=== PATIENT | female | born 1990 | race Caucasian/White ===

== ENCOUNTER 2018-07-24 05:53 | Day surgery (SDC) | payer OTHER ==
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
[~2018-07-24 05:53] MED LIST: ANCEF/STERILE WATER 2 GM/20 ML 2 GM/20 ML SYRINGE IV NR
[2018-07-24] MEDS ORDERED: MARCAINE 0.5% INFILTRATI ONE ×2 (06:39→09:47)
[2018-07-24] MEDS: LACTATED RINGERS 1,000 ML IV SCH ×2 (06:45→07:31)
[2018-07-24] MEDS ORDERED: NACL BACTERIOSTATIC INFILTRATI ONE (06:46)
--- NOTE | 2018-07-24 07:19 | Anesthesia Day of Surgery ---
Anesthesia Day of Surgery - Day of Surgery Patient Examined: Yes Patient H&P Reviewed: Yes Patient is NPO: Yes
--- NOTE | 2018-07-24 07:19 | Anesthesia Consultation ---
Anesthesia Consult and Med Hx Date of service: 07/24/18 - Airway Anesthetic Teeth Evaluation: Good ROM Head & Neck: Adequate Mental/Hyoid Distance: Adequate Mallampati Class: Class II Intubation Access Assessment: Probably Good - Pre-Operative Health Status ASA Pre-Surgery Classification: ASA2 Proposed Anesthetic Plan: General - Cardiovascular System Hx Heart Murmur: Yes - Central Nervous System CVA: No (traumatic brain injury, resolved) Hx Psychiatric Problems: No - Other Systems Hx Cancer: No
[2018-07-24] MEDS ORDERED: ZEMURON IV ONE (07:33)
[2018-07-24] MEDS ORDERED: DIPRIVAN 10 MG/ML IV ONE (07:33)
[2018-07-24] MEDS ORDERED: DILAUDID ONE ×2 (07:33→10:22)
[2018-07-24] MEDS ORDERED: XYLOCAINE MPF 2% ONE (07:34)
[2018-07-24] MEDS ORDERED: CALCIUM CHLORIDE IV ONE (07:38)
[2018-07-24] MEDS ORDERED: THROMBIN (BOVINE) TP ONE ×2 (07:38→08:59)
[2018-07-24] MEDS ORDERED: VERSED IV NR (08:00)
[2018-07-24] MEDS ORDERED: PEPCID IV NR (08:00)
[2018-07-24] MEDS ORDERED: NEOSPORIN GU IR ONE ×2 (08:17→08:58)
[2018-07-24] MEDS ORDERED: DECADRON ONE (08:29)
[2018-07-24] MEDS ORDERED: NACL 0.9% IR ONE (08:57)
[2018-07-24] MEDS ORDERED: CALCIUM GLUCONATE IV ONE (08:59)
[2018-07-24] MEDS ORDERED: ZOFRAN ONE (09:34)
[2018-07-24] MEDS ORDERED: TORADOL ONE (09:34)
[2018-07-24] MEDS ORDERED: ROBINUL ONE (09:34)
[2018-07-24] MEDS ORDERED: BLOXIVERZ ONE (09:34)
[2018-07-24] MEDS ORDERED: LACTATED RINGERS 1,000 ML ONE (09:36)
--- NOTE | 2018-07-24 09:57 | Operative Report ---
Operative Report Operative Report: Date: 07/21/2018 Preoperative diagnosis: 1. Ovarian mass Postoperative diagnosis: 1. Ovarian mass 2. Endometriosis Procedure: 1. Robotic-assisted laparoscopic left salpingo-oophorectomy 2. Fulguration of endometriosis Surgeon Sarah Inman MD Operations Inspector: Leyda Gonzalez Anesthesiologist: Israel Lowe MD Anesthesia: Gen. endotracheal anesthesia EBL: Minimal Findings: Approximately 7-8 cm enlarged left ovary, grossly normal left tube, right tube and ovary. Implant of endometriosis at the right ureteral sacral ligament at its insertion into the uterus. Grossly normal appendix. Procedure: Patient was taken to the OR and placed in the supine position. General anesthesia was induced and an oral gastric tube was placed. Her neck and head were placed on foam support. Foam eye protection with goggles were secured in place. Then foam face protection was placed and secured. Foam shoulder pads were then positioned on her shoulders for Trendelenburg positioning. She was then placed in dorsolithotomy position. Exam under anesthesia revealed fullness in the left posterior cul-de-sac. The abdomen and vagina were then prepped and draped in the usual sterile fashion. Timeout was performed. A Steinberg catheter was inserted into the bladder with drainage of clear yellow urine. The operative speculum was introduced into the vagina and the anterior lip of the cervix was grasped with single-toothed tenaculum. The uterus was sounded to 7 cm. The cervix was progressively dilated to allow the medium V care uterine manipulator. The bulb of the manipulator was inflated and the speculum and tenaculum were removed. The cup of the manipulator was placed around the cervix and the blue occluder of the manipulator was properly positioned in the vagina.. The tenaculum and speculum were removed and the V care manipulator was secured. Sterile gloves were placed and attention was turned to the abdomen. A 10 mm vertical supraumbilical incision was made approximately 10 cm superior to the elevated fundus of the uterus. A 10 mm trocar with the laparoscope and camera attached was introduced through this incision under direct visualization. The abdomen was insufflated. No obvious bowel, bladder, ureteral, or major vascular injury was noted. The patient was then placed in steep Trendelenburg position and the following trochars were placed under direct visualization: 8 mm robotic trochars were placed through incisions made in the bilateral midclavicular lower abdominal region approximately 10 cm lateral and approximately 2 cm below the midline incision, and a 10 mm trocar was placed through an incision made in the right lower lateral pelvis approximately 2 cm superior to the iliac crest. The 10 mm laparoscope was then replaced by a 5 mm laparoscope that was placed through the 10 millimeter lateral trocar. The 10 mm trocar was then removed in the Dylon Damon fascial closure device was placed through the incision and a 0 Vicryl was placed through the fascia. Once the suture was secured the 10 mm trocar was reintroduced. The same procedure was performed on the fascia of the right lower lateral incision. Once the trochars were in the appropriate positions, the HereOrThere robot system was engaged. The EndoShears and bipolar device was placed through the 8 mm trochars and positioned then attention was turned to the console. No bowel, bladder or ureteral or major vascular injury was noted. The uterus was elevated, the left ovary was grasped at the utero-ovarian ligament that was cauterized and incised. Then attention was turned to the infundibulopelvic ligament that was clamped, cauterized and incised. The remainder of ovarian attachment was released and the ovary was placed in Endo Catch bag. An incision was made in the ovary and the Nezhat was introduced to the incision and approximately 50mL of thick yellow fluid was aspirated. Once the ovary was collapsed, the incision was extended and hair was noted to be inside the ovary consistent with a dermoid. The Endo Catch bag was then collapsed and the right lateral lower trocar was removed. The bag was then pulled up through the incision and under direct visualization with the Endo Catch bag intact the collapsed ovary and hair were removed. There was no drainage of fluid into the pelvis nor was there any evidence of hair left in the pelvis.. Attention was then turned back to the left tube that appeared to be discolored. At this point decision was made to proceed with salpingectomy. Once the tube was released it was then removed through the right lower lateral incision. Attention was turned to the adnexa where hemostasis was noted. The uterus was again elevated and the implant of endometriosis on the right utero-sacral ligament was cauterized. The pelvis was inspected and hemostasis was noted. Then platelet rich plasma was applied to the entire pelvis including the operative field and the fulgurated endometriosis implant. Her appendix was grossly normal and ureters were noted to be peristaltic and away from the operative field. Again no bowel bladder or ureteral or major vessel injury was noted. Then the instruments were removed, the robot was disengaged. The 10 mm trocars were removed and the fascia of each incision was ligated with the 0 Vicryl sutures that were placed at the beginning of the procedure. The patient was taken out of Trendelenburg position, the abdomen was desufflated, the remaining trochars were removed. Incisions were reapproximated using 4-0 Vicryl in a subcuticular manner. Incisions were infused with half percent Marcaine without epinephrine and Surgiseal was placed over the incisions. The vagina was then inspected, no bleeding was noted and clear yellow urine was draining into the Steinberg bag from the bladder at the end of the procedure. Patient was taken to recovery room in stable condition. Counts were correct 3, patient tolerated procedure well was taken to recovery in stable condition
[2018-07-24] MEDS ORDERED: PERCOCET 5/325 PO PRN (10:18)
[2018-07-24] MEDS ORDERED: ZOFRAN IV PRN (10:18)
[2018-07-24] MEDS ORDERED: NARCAN 0.4 MG/1 ML IV PRN (10:18)
[2018-07-24] MEDS ORDERED: PHENERGAN PO PRN (10:18)
[2018-07-24] MEDS: DILAUDID IV PRN ×2 (10:20→10:59)
--- NOTE | 2018-07-24 10:34 | Discharge Summary ---
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 Hospitalization Condition: Good Procedures: RA lsc LSO Hospital course: Normal Disposition: DC-01 TO HOME OR SELFCARE - Discharge Diagnoses (1) Ovarian mass Status: Resolved Core Measure Documentation - Palliative Care Palliative Care/ Comfort Measures: Not Applicable - Core Measures Any of the following diagnoses?: none Exam - Constitutional Vitals: Temp Pulse Resp BP Pulse Ox 97.7 F 50 L 12 114/73 99 07/24/18 06:30 07/24/18 06:30 07/24/18 10:20 07/24/18 06:30 07/24/18 06:30 General appearance: Present: no acute distress - Neck Neck: Present: supple - Respiratory Respiratory effort: normal - Cardiovascular Rhythm: regular Plan Activity: other (No sex, no driving, stay on property and ambulate ~1mile a day, void frequently. ) Weight Bearing Status: Weight Bear as Tolerated Diet: regular (Eat small meals frequently) Wound: open to air, keep clean and dry Special Instructions: no heavy lifting (greater than 25lbs) Follow up with: PRIMARY CARE, [Primary Care Provider] - 7 Days JOSE D ARIZA MD [Staff Physician] - (As scheduled)
[2018-07-24 12:38] VITALS: BP 102/58
== END 2018-07-24 12:20 | disposition home or self-care (01) ==
LOC: OR 05:53
PROVIDERS: ATTEND Obstetrics & Gynecology
DX: D28.2 Benign neoplasm of uterine tubes and ligaments (principal); N94.89 Other specified conditions associated with female genital organs and menstrual cycle; N83.8 Other noninflammatory disorders of ovary, fallopian tube and broad ligament; Z98.890 Other specified postprocedural states; Z86.73 Personal history of transient ischemic attack (TIA), and cerebral infarction without residual deficits
CPT/HCPCS: 58662; 58670; 81025; 86850; 86900; 86901; 88305; 88311; A4217; J0610; J0690; J1100; J1170; J1885; J2250; J2405; J2704; J2710; J7120; S2900